=== PATIENT | male | born 1995 | race Two or more races ===

== ENCOUNTER 2020-04-02 14:39 | Observation (INO) ==
[2020-04-02] MEDS ORDERED: ONDANSETRON 4 MG/2 ML VIAL IV STA (15:01)
[2020-04-02] MEDS ORDERED: HYDROmorphone 2 MG/1 ML VIAL IV STA (15:01)
[2020-04-02 15:20] LABS: Basophils % 0.5 % (0.0-0.8); Eosinophils # 0.1 10*3/uL (0.0-0.87); Eosinophils % 1.2 % (0.00-10.9); Hematocrit 43.4 VOL% (42.0-52.0); Immature Granulocytes % 0.5 %; Immature Granulocytes Absolute 0.03 #; Lymphocytes # 2.6 10*3/uL (1.4-4.0); Lymphocytes % 38.7 % (21.2-54.2); Mean Corpuscular HGB Conc 34.6 GM/DL (32-36); Mean Corpuscular Volume 87.7 FL (87-102); Mean Platelet Volume 10.8 FL (9.6-12.0); Monocytes % 4.8 % (1.7-12.7); Neutrophils % 54.3 % (38.7-73.9); Platelet Count 218 T/CUMM (130-400); Red Blood Count 4.95 MC/CUMM (3.8-5.5); Red Cell Distribution Width 12.7 % (9.3-17.3); White Blood Count 6.6 T/CUMM (4-12)
[2020-04-02 15:34] LABS: Calcium 8.8 MG/DL (8.5-10.1); Osmolality,Calculated 280.4 MOS/KG (273-304)
[2020-04-02] MEDS ORDERED: MAGNESIUM HYDROXIDE SUSP 30 ML UDCUP PO PRN (15:56)
[2020-04-02] MEDS: HYDROmorphone 2 MG/1 ML VIAL IV PRN ×2 (17:44→23:00)
[2020-04-02] MEDS: LACTATED RINGERS 1,000 ML IV SCH (18:09)
[2020-04-02] MEDS ORDERED: ENOXAPARIN 40 MG/0.4 ML SYRINGE SUBCUT SCH (21:00)
[2020-04-02 22:15] LABS: Bilirubin,Urine Negative (Negative); Blood, Urine Small mg/dL (Negative); Glucose,Urine (UA) Negative (Negative); Ketones,Urine Negative (Negative); Mucus,Urine Many /LPF (Occasional); Nitrite,Urine Negative (Negative); Protein,Urine Negative; RBC,Urine 9 /HPF (0-4); Urine Appearance CLEAR (Clear); Urine Color Yellow (Yellow); Urine Specific Gravity 1.028 (1.001-1.035); Urine Urobilinogen < 2.0 EU/DL (0.2-1.0); WBC,Urine 3 /HPF (0-6)
[2020-04-03] MEDS: LACTATED RINGERS 1,000 ML IV SCH ×4 (02:54→23:39)
[2020-04-03] MEDS: HYDROmorphone 2 MG/1 ML VIAL IV PRN ×4 (05:37→23:09)
[2020-04-03] MEDS ORDERED: ceFAZolin 1,000 MG in SYRINGE 1 EACH IV ONE (06:00)
[2020-04-03] MEDS ORDERED: ROPIVACAINE 0.5% 30 ML VIAL ONE (14:51)
[2020-04-03] MEDS ORDERED: MIDAZOLAM 2 MG/2 ML VIAL ONE ×2 (14:56→18:06)
[2020-04-03] MEDS ORDERED: ceFAZolin 1,000 MG VIAL ONE (16:58)
[2020-04-03] MEDS ORDERED: ONDANSETRON 4 MG/2 ML VIAL IV PRN (17:57)
[2020-04-03] MEDS ORDERED: diphenhydrAMINE CAP 25 MG CAPSULE PO PRN (17:57)
[2020-04-03] MEDS ORDERED: KETOROLAC 30 MG/1 ML VIAL IV PRN (17:57)
[2020-04-03] MEDS ORDERED: LIDOCAINE 2% 5 ML VIAL ONE (18:05)
[2020-04-03] MEDS ORDERED: propofoL 200 MG/20 ML VIAL IV ONE (18:05)
[2020-04-03] MEDS ORDERED: SEVOFLURANE 1 UNIT/15 MINUTE INH ONE (18:06)
[2020-04-03] MEDS ORDERED: fentaNYL 100 MCG/2 ML VIAL ONE (18:06)
[2020-04-04] MEDS: ceFAZolin 1,000 MG in SYRINGE 1 EACH IV SCH ×2 (00:34→10:42)
[2020-04-04 11:56] VITALS: BP 161/71
== END 2020-04-04 15:39 | disposition home or self-care (01) ==
LOC: N.EDINP 14:39 → N.ED 14:39 → N.3E 16:39
PROVIDERS: ADMIT Orthopaedic Surgery; ATTEND Orthopaedic Surgery